=== PATIENT | female | born 1995 | race Two or more races ===

== ENCOUNTER 2021-02-18 17:30 | Emergency (ER) | payer OTHER ==
[~2021-02-18] VITALS: Ht 154.9 cm; Wt 44.5 kg
== END 2021-02-18 20:12 | disposition home or self-care (01) ==
LOC: ER 17:30
DX: M94.0 Chondrocostal junction syndrome [Tietze] (principal); R07.89 Other chest pain; F41.1 Generalized anxiety disorder

== ENCOUNTER 2021-06-12 18:26 | Emergency (ER) | payer OTHER ==
[~2021-06-12] VITALS: Ht 149.9 cm; Wt 46.7 kg
== END 2021-06-12 21:16 | disposition home or self-care (01) ==
LOC: ER 18:26
DX: R10.2 Pelvic and perineal pain (principal)

== ENCOUNTER 2022-04-06 10:57 | Emergency (ER) | payer OTHER ==
[~2022-04-06] VITALS: Ht 152.4 cm; Wt 45.4 kg
[2022-04-06] MEDS ORDERED: KEPPRA500 MG PO (11:14)
== END 2022-04-06 16:10 | disposition home or self-care (01) ==
LOC: ER 10:57
DX: K52.9 Noninfective gastroenteritis and colitis, unspecified (principal); G40.909 Epilepsy, unspecified, not intractable, without status epilepticus; Z91.013 Allergy to seafood

== ENCOUNTER 2022-05-15 10:13 | Emergency (ER) | payer OTHER ==
[~2022-05-15] VITALS: Ht 152.4 cm; Wt 54.4 kg
[~2022-05-15 10:13] MED LIST: KEPPRA500 MG PO
== END 2022-05-15 13:44 | disposition home or self-care (01) ==
LOC: ER 10:13
DX: R56.9 Unspecified convulsions (principal); Z91.013 Allergy to seafood

== ENCOUNTER 2023-04-25 14:26 | Emergency (ER) | payer OTHER ==
[~2023-04-25] VITALS: Ht 152.4 cm; Wt 40.8 kg
[2023-04-25 16:28] LABS: HEMOGLOBIN 13.3 g/dL (12.0-15.00); MEAN CELL VOLUME 88.3 fL (80.00-100.00); MEAN CORPUSCULAR HEMOGLOBIN 30.9 pg (27.00-32.0); PLATELET COUNT 183 K/uL (150-450); RED BLOOD COUNT 4.31 M/uL (4.00-6.00); RED CELL DISTRIBUTION WIDTH 12.1 % (11.5-14.5)
[2023-04-25 17:05] LABS: ALBUMIN 4.4 gm/dL (3.4-5.0); BILIRUBIN TOTAL 0.82 mg/dL (0.3-1.2); CALCIUM 9.2 mg/dL (8.5-10.1); CREATININE SERUM 0.97 mg/dL (0.55-1.02); GFR 68.89; GLOBULINA 3.4 G/DL (2.4-3.5); POTASSIUM 3.43 mEq/L (3.5-5.1); TOTAL PROTEIN 7.8 gm/dL (6.4-8.2)
== END 2023-04-25 23:38 | disposition home or self-care (01) ==
LOC: ER 14:27
PROVIDERS: General Practice
DX: K29.70 Gastritis, unspecified, without bleeding (principal); Z91.013 Allergy to seafood
CPT/HCPCS: 36415; 74176; 96365; 99284; J2405 ×2; J2765; J3490

== ENCOUNTER → 2023-05-22 | Emergency (ER) | payer OTHER ==
[~2023-05-22] VITALS: Ht 154.9 cm; Wt 40.8 kg
== END | disposition left against medical advice (07) ==
LOC: ER 18:27
DX: Z53.21 Procedure and treatment not carried out due to patient leaving prior to being seen by health care provider (principal)